=== PATIENT | male | born 1950 | race Caucasian/White ===

== ENCOUNTER 2020-10-26 01:06 | Observation (INO) | payer BC, OTHER ==
[2020-10-26 02:06] LABS: Absolute Lymphocytes (CBC) 2.4 K/uL (0.7-4.9); Basophils % 1.3 % (0-1.3); Hematocrit 42.4 % (39.6-49.0); Lymphocytes % 32.5 % (15.3-44.8); MPV 8.6 fL (7.6-11.3); RBC Red Blood Cell Count 4.98 M/uL (4.33-5.43)
[2020-10-26 02:07] LABS: Protime INR 1.03
[2020-10-26 02:17] LABS: Potassium 3.9 mmol/L (3.5-5.1)
[2020-10-26 03:03] LABS: SARS-COV-2 RT PCR NEGATIVE (NEGATIVE)
--- NOTE | 2020-10-26 03:55 | EDPHYS ---
Physician Documentation [facility] Name: Weston He Age: 70 yrs Sex: Male : 1950 Arrival Date: 10/26/2020 Time: 01:08 Bed 16 Private MD: ED Physician Brayden Drew HPI: 10/26 01:30 This 70 yrs old Male presents to ER via Ambulatory with complaints of Slurred ps1 Speech. 01:30 Patient presenting with stroke like symptoms. Onset 20 hours ago. Went to chiropractor ps1 and got adjusted and woke up with back pain. He started dragging his right leg and noticed that his speech was off. Thought it was related to his back. Did not get better. Now has right facial droop, right upper and lower extremity weakness. . Historical: - Allergies: :30 No Known Allergies; em - Home Meds: :30 Flomax 0.4 mg Oral cp24 1 cap once daily [Active]; lisinopril 20 mg Oral tab [Active]; em - PMHx: 01:30 Hypertension; em - PSHx: :30 None; em - Immunization history:: Adult Immunizations up to date. - Social history:: Smoking status: Patient denies any tobacco usage or history of. ROS: 01:30 Constitutional: Negative for fever, chills, and weight loss, Eyes: Negative for injury, ps1 pain, redness, and discharge, Cardiovascular: Negative for chest pain, palpitations, and edema, Respiratory: Negative for shortness of breath, cough, wheezing, and pleuritic chest pain, Abdomen/GI: Negative for abdominal pain, nausea, vomiting, diarrhea, and constipation, MS/Extremity: Negative for injury and deformity, Skin: Negative for injury, rash, and discoloration. 01:30 Back: Positive for pain with movement. 01:30 Neuro: Positive for weakness, of the right cheek, right arm, right leg. Exam: 01:30 Constitutional: This is a well developed, well nourished patient who is awake, alert, ps1 and in no acute distress. Head/Face: Normocephalic, atraumatic. Eyes: Pupils equal round and reactive to light, extra-ocular motions intact. Lids and lashes normal. Conjunctiva and sclera are non-icteric and not injected. Cardiovascular: Regular rate and rhythm. No gallops, murmurs, or rubs. Normal PMI, no JVD. No pulse deficits. Respiratory: Lungs have equal breath sounds bilaterally, clear to auscultation and percussion. No rales, rhonchi or wheezes noted. No increased work of breathing, no retractions or nasal flaring. Abdomen/GI: Soft, non-tender, with normal bowel sounds. No distension or tympany. No guarding or rebound. No evidence of tenderness throughout. Skin: Warm, dry with normal turgor. Normal color with no rashes, no lesions, and no evidence of cellulitis. MS/ Extremity: Pulses equal, no cyanosis. Neurovascular intact. Full, normal range of motion. 01:30 Neuro: Orientation: is normal, Mentation: is normal, Memory: is normal, Cranial nerves: facial droop noted on right, Motor: Hypotonic in right arm and right leg. dysarthria. Vital Signs: 01:24 BP 155 / 85; Pulse 49; Resp 18; Temp 98.2(O); Pulse Ox 99% on R/A; Weight 88 kg; Height em 5 ft. 11 in. (180.34 cm); Pain 0/10; 02:34 BP 145 / 84; Pulse 52; Resp 18; Pulse Ox 95% ; wh 03:45 BP 163 / 89; Pulse 50; Resp 18; Pulse Ox 98% on R/A; 05:00 BP 145 / 82; Pulse 52; Resp 18; Pulse Ox 96% on R/A; 01:24 Body Mass Index 27.06 (88.00 kg, 180.34 cm) NIH Stroke Scale Scores: 01:20 NIHSS Score: 4 01:30 NIHSS Score: 4 [facility] 02:07 NIHSS Score: 4 MDM: 01:29 Patient medically screened. ps1 10/26 01:28 Order name: Basic Metabolic Panel ps1 10/26 01:28 Order name: CBC with Diff ps1 10/26 01:28 Order name: Protime (+inr) ps1 10/26 01:28 Order name: Ptt, Activated ps1 10/26 01:28 Order name: Lipid Profile ps1 10/26 01:29 Order name: Basic Metabolic Panel; Complete Time: 02:28 EDMS 10/26 01:29 Order name: CBC with Automated Diff; Complete Time: 02:28 EDMS 10/26 01:29 Order name: Protime (+INR); Complete Time: 02:28 EDMS 10/26 01:29 Order name: PTT, Activated Partial Thromb; Complete Time: 02:28 EDMS 10/26 01:29 Order name: Lipid Profile; Complete Time: 02:28 EDMS 10/26 01:34 Order name: Glucose, Ancillary Testing; Complete Time: 01:38 EDMS 10/26 01:39 Order name: COVID-19 ps1 10/26 01:39 Order name: Flu ps1 10/26 02:37 Order name: CREATININE WHOLE BLOOD; Complete Time: 02:41 EDMS 10/26 03:03 Order name: COVID-19/FLU A+B; Complete Time: 03:05 EDMS 10/26 04:49 Order name: Thyroid Stimulating Hormone EDMS 10/26 04:49 Order name: UR CREAT EDMS 10/26 04:49 Order name: UR SODIUM EDMS 10/26 04:49 Order name: CBC with Automated Diff EDMS 10/26 04:49 Order name: Comprehensive Metabolic Panel EDMS 10/26 04:49 Order name: Comprehensive Metabolic Panel EDMS 10/26 04:49 Order name: Lipid Profile EDMS 10/26 04:49 Order name: Lipid Profile EDMS 10/26 04:49 Order name: Urinalysis W/Microscopic EDMS 10/26 04:49 Order name: Homocysteine EDMS 10/26 04:49 Order name: CBC with Automated Diff EDMS 10/26 01:28 Order name: CT Stroke Brain w/o Contrast ps1 10/26 01:28 Order name: Stroke CXR 1 View ps1 10/26 01:28 Order name: EKG; Complete Time: 01:30 ps1 10/26 01:28 Order name: Accucheck; Complete Time: 01:52 ps1 10/26 01:28 Order name: Cardiac monitoring; Complete Time: 01:52 ps1 10/26 01:28 Order name: EKG - Nurse/Tech; Complete Time: 01:52 ps1 10/26 01:28 Order name: IV Saline Lock; Complete Time: 01:52 ps1 10/26 01:28 Order name: Labs collected and sent; Complete Time: 01:52 ps1 10/26 01:28 Order name: NPO; Complete Time: 01:52 ps1 10/26 01:28 Order name: O2 Per Protocol; Complete Time: 01:52 ps1 10/26 01:28 Order name: O2 Sat Monitoring; Complete Time: 01:52 ps1 10/26 01:28 Order name: Head Angio CT [facility] 10/26 01:28 Order name: Neck Angio CT [facility] 10/26 04:49 Order name: CONS Pharmacy Consult [facility] 10/26 04:49 Order name: CONS Physician Consult [facility] 10/26 04:49 Order name: CONS Physician Consult [facility] 10/26 04:49 Order name: Physical Therapy Consult [facility] 10/26 04:49 Order name: Full Liquid EDMS 10/26 04:49 Order name: NPO EDMS 10/26 04:49 Order name: Occupational Therapy Consult [facility] 10/26 04:49 Order name: Renal Ultrasound-Complete [facility] 10/26 05:26 Order name: Liver (Hepatic) Function [facility] 10/26 05:53 Order name: Labs - recollect needed: Red top on ICE plz; Complete Time: 05:57 sg 10/26 07:21 Order name: Brain Wo Cont EDMS Administered Medications: No medications were administered Point of Care Testing: Blood Glucose: :30 Blood Glucose: 104 mg/dL; em Ranges: Critical Glucose Levels:Adult <50 mg/dl or >400 mg/dl <40 mg/dl or >180 mg/dl Disposition: 10/26/20 03:55 Hospitalization ordered by Johana Burton for Inpatient Admission. Preliminary diagnosis is Stroke. - Bed requested for Telemetry/MedSurg (Inpatient). - Status is Inpatient Admission. ss - Condition is Stable. - Problem is new. - Symptoms are unchanged. NIH Stroke Scale - NIH Stroke Score Date: 10/26/2020 Time: :20 Total Score = 4 1a. Level of Consciousness (LOC) - 0(Alert) 1b. Level of Consciousness (LOC) (Year \T\ Age) - 0(Both) 1c. LOC Commands (Open \T\ Closes Eyes/Registered Nurse Step Down) - 0(Both) 2. Best Gaze (Lateral Gaze Paresis) - 0(Normal) 3. Visual Field Loss - 0(No visual loss) 4. Facial Palsy - 1(Minor Paralysis) 5a. Left Arm: Motor (10-second hold) - 0(No drift) 5b. Right Arm: Motor (10-second hold) - 1(Drift) 6a. Left Leg: Motor (5-second hold - always test supine) - 0(No drift) 6b. Right Leg: Motor (5-second hold - always test supine) - 1(Drift) 7. Limb Ataxia (finger/nose \T\ heel/ruiz - test with eyes open) - 0(Absent) 8. Sensory Loss (pinprick arms/legs/face) - 0(Normal) 9. Best Language: Aphasia (description/naming/reading) - 0(No aphasia) 10. Dysarthria (speech clarity - read or repeat words) - 1(Mild to Moderate) 11. Extinction and Inattention (visual/tactile/auditory/spatial/personal) - 0(No abnormality) Initials: NIH Stroke Scale - NIH Stroke Score Date: 10/26/2020 Time: 01:30 Total Score = 4 1a. Level of Consciousness (LOC) - 0(Alert) 1b. Level of Consciousness (LOC) (Year \T\ Age) - 0(Both) 1c. LOC Commands (Open \T\ Closes Eyes/Registered Nurse Step Down) - 0(Both) 2. Best Gaze (Lateral Gaze Paresis) - 0(Normal) 3. Visual Field Loss - 0(No visual loss) 4. Facial Palsy - 1(Minor Paralysis) 5a. Left Arm: Motor (10-second hold) - 0(No drift) 5b. Right Arm: Motor (10-second hold) - 1(Drift) 6a. Left Leg: Motor (5-second hold - always test supine) - 0(No drift) 6b. Right Leg: Motor (5-second hold - always test supine) - 1(Drift) 7. Limb Ataxia (finger/nose \T\ heel/ruiz - test with eyes open) - 0(Absent) 8. Sensory Loss (pinprick arms/legs/face) - 0(Normal) 9. Best Language: Aphasia (description/naming/reading) - 0(No aphasia) 10. Dysarthria (speech clarity - read or repeat words) - 1(Mild to Moderate) 11. Extinction and Inattention (visual/tactile/auditory/spatial/personal) - 0(No abnormality) Initials: [facility] NIH Stroke Scale - NIH Stroke Score Date: 10/26/2020 Time: 02:07 Total Score = 4 1a. Level of Consciousness (LOC) - 0(Alert) 1b. Level of Consciousness (LOC) (Year \T\ Age) - 0(Both) 1c. LOC Commands (Open \T\ Closes Eyes/Registered Nurse Step Down) - 0(Both) 2. Best Gaze (Lateral Gaze Paresis) - 0(Normal) 3. Visual Field Loss - 0(No visual loss) 4. Facial Palsy - 1(Minor Paralysis) 5a. Left Arm: Motor (10-second hold) - 0(No drift) 5b. Right Arm: Motor (10-second hold) - 1(Drift) 6a. Left Leg: Motor (5-second hold - always test supine) - 0(No drift) 6b. Right Leg: Motor (5-second hold - always test supine) - 1(Drift) 7. Limb Ataxia (finger/nose \T\ heel/ruiz - test with eyes open) - 0(Absent) 8. Sensory Loss (pinprick arms/legs/face) - 0(Normal) 9. Best Language: Aphasia (description/naming/reading) - 0(No aphasia) 10. Dysarthria (speech clarity - read or repeat words) - 1(Mild to Moderate) 11. Extinction and Inattention (visual/tactile/auditory/spatial/personal) - 0(No abnormality) Initials: wh Signatures: Dispatcher [employer] EDMS Kamilla Mcguire Steven, RN RN sg Munoz, Edgar, Afshan Curry RN, RN RN Brayden Drew MD MD ps1 Corrections: (The following items were deleted from the chart) 01:30 01:29 HEMOGLOBIN A1C+CHEM A1C.LAB.BRZ ordered. EDMS EDMS 01:59 01:40 Influenza Screen (A ordered. EDMS EDMS 02:00 01:40 CORONAVIRUS ordered. EDMS EDMS 05:25 04:49 Liver (Hepatic) Function ordered. EDMS EDMS 07:21 04:52 Brain With Cont ordered. EDWV EDMS 10:07 03:55 Hospitalization Ordered by Johana Burton MD for Inpatient Admission. ss Preliminary diagnosis is Stroke. Bed requested for Telemetry/MedSurg (Inpatient). Status is Inpatient Admission. Condition is Stable. Problem is new. Symptoms are unchanged. ps1 11:58 10:07 10/26/2020 03:55 Hospitalization Ordered by Johana Burton MD for bd Inpatient Admission. Preliminary diagnosis is Stroke. [facility] Status is Inpatient Admission. Condition is Stable. Problem is new. Symptoms are unchanged. ss 12:29 11:58 10/26/2020 03:55 Hospitalization Ordered by Johana Burton MD for ss Inpatient Admission. Preliminary diagnosis is Stroke. Bed requested for Telemetry/MedSurg (Inpatient). Status is Inpatient Admission. Condition is Stable. Problem is new. Symptoms are unchanged. bd
--- NOTE | 2020-10-26 03:55 | ER ---
Nurse's Notes [facility] Name: Weston He Age: 70 yrs Sex: Male : 1950 Arrival Date: 10/26/2020 Time: 01:08 Bed 16 Private MD: Diagnosis: Stroke Presentation: 10/26 01:24 Chief complaint: Patient states: pt reports slurred speech and right sided weakness em since 3 AM Sunday, reports he feels like his right leg is dragging, BGL 104 at triage, Dr. Drew at bedside, code stroke activated. Coronavirus screen: Client denies travel out of the [place] in the last 14 days. Ebola Screen: Patient negative for fever greater than or equal to 101.5 degrees Fahrenheit, and additional compatible Ebola Virus Disease symptoms Patient denies exposure to infectious person. Patient denies travel to an Ebola-affected area in the 21 days before illness onset. No symptoms or risks identified at this time. An acute neurological deficit is present. The charge nurse has been notified. The patient has been moved to a treatment area. Pre-hospital glucose is not applicable to this patient. Initial Sepsis Screen: Does the patient meet any 2 criteria? No. Patient's initial sepsis screen is negative. Does the patient have a suspected source of infection? No. Patient's initial sepsis screen is negative. Risk Assessment: Do you want to hurt yourself or someone else? Patient reports no desire to harm self or others. Onset of symptoms was October 25, 2020 at 03:00. 01:24 Method Of Arrival: Ambulatory em 01:24 Acuity: FRANKI 2 em Triage Assessment: 01:30 The onset of the patients symptoms was October 25, 2020 at 03:00. em 02:09 Neuro: Reports slurred speech. wh Stroke Activation: Physician: Stroke Attending; Name: ; Notified At: ; Arrived At: Physician: Chief Stroke Resident; Name: ; Notified At: ; Arrived At: Physician: Stroke Resident; Name: ; Notified At: ; Arrived At: Physician: ED Attending; Name: ; Notified At: 01:26; Arrived At: Physician: ED Resident; Name: ; Notified At: ; Arrived At: Historical: - Allergies: :30 No Known Allergies; em - Home Meds: 01:30 Flomax 0.4 mg Oral cp24 1 cap once daily [Active]; lisinopril 20 mg Oral tab [Active]; em - PMHx: 01:30 Hypertension; em - PSHx: 01:30 None; em - Immunization history:: Adult Immunizations up to date. - Social history:: Smoking status: Patient denies any tobacco usage or history of. Screenin:20 VAN Screening: Arm Drift: Minor drift. Visual Disturbance: No visual disturbance noted. wh Aphasia: No aphasia noted. Neglect: No neglect noted. 02:09 Abuse screen: Denies threats or abuse. Denies injuries from another. Nutritional wh screening: No deficits noted. Tuberculosis screening: No symptoms or risk factors identified. Fall Risk None identified. Assessment: 01:29 Reassessment: wheeled to CT by TANISHA Becerril at this time. em 01:35 General: Appears in no apparent distress. Behavior is calm, cooperative, appropriate wh for age. Pain: Denies pain. 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 Gait is steady, Speech is slurred, Facial droop on right. Cardiovascular: Heart tones S1 S2. Respiratory: Airway is patent Respiratory effort is even, unlabored, Respiratory pattern is regular, symmetrical, Breath sounds are clear bilaterally. GI: Abdomen is flat, non-distended. : No signs and/or symptoms were reported regarding the genitourinary system. EENT: No signs and/or symptoms were reported regarding the EENT system. Derm: Skin is intact, is healthy with good turgor, Skin is pink, warm \T\ dry. normal. Musculoskeletal: Circulation, motion, and sensation intact. 02:07 VAN Scoring: Arm Drift: Minor drift Visual Disturbance: No visual disturbance noted. wh Aphasia: No aphasia noted. Neglect: No neglect noted. Patient has been NPO before screening. The patient is alert, and able to follow commands. The patient exhibits slurred or garbled speech. The patient is not exhibiting difficulty speaking. The patient is exhibiting difficulty understanding words. The patient is able to swallow own secretions with no drooling or need for suction. Patient tolerated one teaspoon of water. No drooling, immediate coughing, gurgling, or clearing of the throat was noted. The patient tolerated 90mL of water. No drooling, immediate coughing, gurgling, or clearing of the throat was noted. The patient passed the bedside swallow screening. Oral medications may be given as ordered. Contact Physician for further diet orders. Provider notified of bedside swallow screening results: Brayden Drew MD. 02:08 T-PA (Activase) Screening: Contraindications: Other: More than 20 hours since onset. 02:34 Reassessment: Patient appears in no apparent distress at this time. No changes from previously documented assessment. Patient and/or family updated on plan of care and expected duration. Pain level reassessed. Patient is alert, oriented x 3, equal unlabored respirations, skin warm/dry/pink. 04:00 Reassessment: Patient appears in no apparent distress at this time. Patient and/or family updated on plan of care and expected duration. Pain level reassessed. Patient is alert, oriented x 3, equal unlabored respirations, skin warm/dry/pink. MD at bedside explaining POC need for admit. 05:06 Reassessment: Patient appears in no apparent distress at this time. Patient and/or family updated on plan of care and expected duration. Pain level reassessed. Patient is alert, oriented x 3, equal unlabored respirations, skin warm/dry/pink. 07:10 Reassessment: Pt taken to MRI via wheelchair. ph Vital Signs: 01:24 BP 155 / 85; Pulse 49; Resp 18; Temp 98.2(O); Pulse Ox 99% on R/A; Weight 88 kg; Height em 5 ft. 11 in. (180.34 cm); Pain 0/10; 02:34 BP 145 / 84; Pulse 52; Resp 18; Pulse Ox 95% ; 03:45 BP 163 / 89; Pulse 50; Resp 18; Pulse Ox 98% on R/A; 05:00 BP 145 / 82; Pulse 52; Resp 18; Pulse Ox 96% on R/A; 01:24 Body Mass Index 27.06 (88.00 kg, 180.34 cm) em NIH Stroke Scale Scores: 01:20 NIHSS Score: 4 wh 01:30 NIHSS Score: 4 ps1 02:07 NIHSS Score: 4 ED Course: 01:08 Patient arrived in ED. cl3 01:20 Brayden Drew MD is Attending Physician. ps1 01:26 Jerrica Rosario, RN is Primary Nurse. wh 01:29 Triage completed. em 01:30 Arm band placed on. em 01:42 CT Stroke Brain w/o Contrast In Process Unspecified. EDMS 01:48 Initial lab(s) drawn, by me, sent to lab. Inserted saline lock: 20 gauge in right em forearm, using aseptic technique. Blood collected. 01:50 Stroke CXR 1 View In Process Unspecified. EDMS 02:09 Patient has correct armband on for positive identification. Placed in gown. Bed in low wh position. Call light in reach. Side rails up X 1. monitor car operator on. Pulse ox on. NIBP on. 02:[address] In Process Unspecified. EDMS 02:[address] In Process Unspecified. EDMS 03:54 Johana Burton MD is Hospitalizing Provider. ps1 07:22 Brain Wo Cont In Process Unspecified. EDMS 08:17 Renal Ultrasound-Complete In Process Unspecified. EDMS Administered Medications: No medications were administered Point of Care Testing: Blood Glucose: 01:30 Blood Glucose: 104 mg/dL; em Ranges: Outcome: 03:55 Decision to Hospitalize by Provider. ps1 12:29 Patient left the ED. NIH Stroke Scale - NIH Stroke Score Date: 10/26/2020 Time: 01:20 Total Score = 4 1a. Level of Consciousness (LOC) - 0(Alert) 1b. Level of Consciousness (LOC) (Year \T\ Age) - 0(Both) 1c. LOC Commands (Open \T\ Closes Eyes/President + Publisher) - 0(Both) 2. Best Gaze (Lateral Gaze Paresis) - 0(Normal) 3. Visual Field Loss - 0(No visual loss) 4. Facial Palsy - 1(Minor Paralysis) 5a. Left Arm: Motor (10-second hold) - 0(No drift) 5b. Right Arm: Motor (10-second hold) - 1(Drift) 6a. Left Leg: Motor (5-second hold - always test supine) - 0(No drift) 6b. Right Leg: Motor (5-second hold - always test supine) - 1(Drift) 7. Limb Ataxia (finger/nose \T\ heel/ruiz - test with eyes open) - 0(Absent) 8. Sensory Loss (pinprick arms/legs/face) - 0(Normal) 9. Best Language: Aphasia (description/naming/reading) - 0(No aphasia) 10. Dysarthria (speech clarity - read or repeat words) - 1(Mild to Moderate) 11. Extinction and Inattention (visual/tactile/auditory/spatial/personal) - 0(No abnormality) Initials: NIH Stroke Scale - NIH Stroke Score Date: 10/26/2020 Time: 01:30 Total Score = 4 1a. Level of Consciousness (LOC) - 0(Alert) 1b. Level of Consciousness (LOC) (Year \T\ Age) - 0(Both) 1c. LOC Commands (Open \T\ Closes Eyes/President + Publisher) - 0(Both) 2. Best Gaze (Lateral Gaze Paresis) - 0(Normal) 3. Visual Field Loss - 0(No visual loss) 4. Facial Palsy - 1(Minor Paralysis) 5a. Left Arm: Motor (10-second hold) - 0(No drift) 5b. Right Arm: Motor (10-second hold) - 1(Drift) 6a. Left Leg: Motor (5-second hold - always test supine) - 0(No drift) 6b. Right Leg: Motor (5-second hold - always test supine) - 1(Drift) 7. Limb Ataxia (finger/nose \T\ heel/ruiz - test with eyes open) - 0(Absent) 8. Sensory Loss (pinprick arms/legs/face) - 0(Normal) 9. Best Language: Aphasia (description/naming/reading) - 0(No aphasia) 10. Dysarthria (speech clarity - read or repeat words) - 1(Mild to Moderate) 11. Extinction and Inattention (visual/tactile/auditory/spatial/personal) - 0(No abnormality) Initials: [facility], [place] NIH Stroke Scale - NIH Stroke Score Date: 10/26/2020 Time: 02:07 Total Score = 4 1a. Level of Consciousness (LOC) - 0(Alert) 1b. Level of Consciousness (LOC) (Year \T\ Age) - 0(Both) 1c. LOC Commands (Open \T\ Closes Eyes/President + Publisher) - 0(Both) 2. Best Gaze (Lateral Gaze Paresis) - 0(Normal) 3. Visual Field Loss - 0(No visual loss) 4. Facial Palsy - 1(Minor Paralysis) 5a. Left Arm: Motor (10-second hold) - 0(No drift) 5b. Right Arm: Motor (10-second hold) - 1(Drift) 6a. Left Leg: Motor (5-second hold - always test supine) - 0(No drift) 6b. Right Leg: Motor (5-second hold - always test supine) - 1(Drift) 7. Limb Ataxia (finger/nose \T\ heel/ruiz - test with eyes open) - 0(Absent) 8. Sensory Loss (pinprick arms/legs/face) - 0(Normal) 9. Best Language: Aphasia (description/naming/reading) - 0(No aphasia) 10. Dysarthria (speech clarity - read or repeat words) - 1(Mild to Moderate) 11. Extinction and Inattention (visual/tactile/auditory/spatial/personal) - 0(No abnormality) Initials: Signatures: Dispatcher [employer] Fortino Avila RN RN Afshan Storm RN RN Lucy Abreu RN RN Jerrica Rosario RN RN wh Singer, Phillip, MD MD ps1 Yuan Hannon cl3 Corrections: (The following items were deleted from the chart) 02:33 02:08 T-PA (Activase) Screening: Contraindications: Other: More than 20 hours wh since onser 04:06 01:24 Chief complaint: Patient states: pt reports slurred speech and right em sided weakness since 3 AM Sunday, reports he feels like his right, BGL 104 at triage, Dr. Drew at bedside, code stroke activated em
--- NOTE | 2020-10-26 04:34 | P.HP ---
Certification for Inpatient With expected LOS: >2 Midnights Patient will require the following post-hospital care: Rehabilitation Practitioner: I am a practitioner with admitting privileges, knowledge of patient current condition, hospital course, and medical plan of care. Services: Services provided to patient in accordance with Admission requirements found in Title 42 Section 412.3 of the Code of Federal Regulations Patient History Date of Service: 10/26/20 Reason for admission: right sided weakness History of Present Illness: 7 2 1-year-old male with past medical history of HTN, BPH, develop weakness of the right upper and lower extremity as well as difficulty with speaking or poor waking of 24 hr sickle. Patient states he has had a chiropractic back adjustment DD area. 0 4 waking up he has discovered onset of gait instability with slight weakness of the right upper and lower extremity. He did not notice change in his voice but was told later by his friends. Patient has fed the symptoms way related to his lower back spasm. But symptoms continued to persist throughout the day hernia presented to the ED later at night. On presentation patient was outside tPA window. He had a head CT with angio done that shows mild atrophic but no significant stenosis. Patient was noted with mild elevated creatinine of 1.89. EKG was remarkable for sinus bradycardia with first-degree AV block but no a rate mass. Patient initial NIH stroke scale score was 4 which remained stable 2 hr since presentation. He has been admitted for possible acute left CVA He denies prior history of similar symptoms. He denies family history of CVA. He denies any cardiac history. He states he has usual blood pressure range in the 140s to 150 systolic. He states adherent with daily lisinopril and Flomax. Home medications list reviewed: Yes - Past Medical/Surgical History Has patient received pneumonia vaccine in the past: No -: HTN -: BPH Past Surgical History: Reviewed- Non-Contributory - Family History Family History: Reviewed- Non-Contributory - Social History Smoking Status: Never smoker Place of Residence: Home Review of Systems Unremarkable General: Unremarkable Eyes: Unremarkable ENT: Unremarkable Respiratory: Unremarkable Cardiovascular: Unremarkable Gastrointestinal: Unremarkable Musculoskeletal: Unremarkable Integumentary: Unremarkable Neurological: Weakness, Incoordination, Change in Speech Physical Examination - Physical Exam General: Alert, Cooperative HEENT: Atraumatic, Normocephalic, PERRLA, Mucous membr. moist/pink Neck: Supple, 2+ carotid pulse no bruit, JVD not distended, No Thyromegaly Respiratory: Clear to auscultation bilaterally, Normal air movement Cardiovascular: No edema, Normal pulses, Regular rate/rhythm, Normal S1 S2, No murmurs Capillary refill: <2 Seconds Gastrointestinal: Normal bowel sounds, Soft and benign, Non-distended, W/out hepatosplenomegaly, No ascites, No tenderness Musculoskeletal: No clubbing, No swelling Integumentary: No rashes, No breakdown Neurological: Sensation intact, Cranial nerves 3-12 intact, Other (Power 4-5/5 globally , Mild pronator drift of RUE/RLE), Abnormal gait External genitalia: No edema, No lesions - Studies Laboratory Data (last 24 hrs) 10/26/20 01:48: PT 12.1, INR 1.03, APTT 26.5 10/26/20 01:48: WBC 7.40, Hgb 14.8, Hct 42.4, Plt Count 192 10/26/20 01:48: Sodium 140, Potassium 3.9, BUN 21 H, Creatinine 1.89 H, Glucose 90, Triglycerides 141, Cholesterol 187, HDL Cholesterol 35 L, Cholesterol/HDL Ratio 5.34 Imagings Data: EKG SHOWS SINUS BRADYCARDIA AT 54 BEATS PER MIN, FIRST-DEGREE AV BLOCK. HEAD CT SHOWS MILD CEREBRAL ATROPHIC, NO ACUTE INTRACRANIAL CHANGES CT ANGIO OF HEAD AND NECK-MILD CAROTID BULB ATHEROSCLEROSIS, NO OTHER SIGNIFICANT STENOSIS OF VERTEBRAL/BASILAR VESSELS Assessment and Plan - Problems (Diagnosis) (1) CVA (cerebral vascular accident) Current Visit: Yes Status: Acute (2) HTN (hypertension) Current Visit: Yes Status: Acute (3) ARF (acute renal failure) Current Visit: Yes Status: Acute (4) BPH w/o urinary obs/LUTS Current Visit: Yes Status: Acute - Advance Directives Does patient have a Living Will: No Does patient have a Durable POA for Healthcare: No - Code Status/Comfort Care Code Status Assessed: Yes Physician Review: Patient Assessed, Agree with Above Assessment and Plan Physician Review Additional Text: ACUTE LEFT CVA-with mild right upper and lower extremity weakness will obtain MRI of the brain to rule out ischemic lesions Clinical features consistent with acute CVA We start patient on empirical aspirin as well as Plavix Will consult neurology Will consult PT and OT Patient might need SNF Will obtain lipid profile, homocystine level less than Allow for permissive hypertension for the next 24 hr We start empirical Lipitor 40 mg daily Will obtain swallow evaluation Hypertension-on lisinopril and Flomax, mild systolic elevation to 160s now. Will hold blood pressure medications now but do IV hydralazine p.r.n. systolic double 180 BPH-may need restart Flomax Acute kidney injury-may be due to lisinopril use Will obtain renal sonogram to rule out type hydronephrosis High risk of superimposed contrast nephropathy considered Do gentle IV fluid with D5 NS DVT prophylaxis-do subcutaneous Lovenox for now Advanced directive-patient is full code Time Spent Managing Pts Care (In Minutes): 65
[2020-10-26] MEDS ORDERED: ONDANSETRON 4 MG/2 ML VIAL IV PRN (04:40)
[2020-10-26] MEDS ORDERED: MORPHINE 2 MG/ML SYR IV PRN (04:40)
[2020-10-26] MEDS ORDERED: HYDRALAZINE HCL 20 MG/ML VIAL IV PRN (04:48)
[2020-10-26] MEDS ORDERED: ALPRAZOLAM 1 MG TABLET PO ONE (04:52)
[2020-10-26] MEDS: D5 0.9 NS 1,000 ML IV SCH ×2 (05:00→14:18)
[2020-10-26 05:55] LABS: Albumin 3.4 g/dL (3.4-5.0); Bilirubin Direct 0.1 mg/dL (0-0.2); Bilirubin Total 0.5 mg/dL (0.2-1.0); Protein, Total 6.5 g/dL (6.4-8.2); Thyroid Stimulating Hormone 0.694 uIU/mL (0.360-3.740)
--- NOTE | 2020-10-26 06:59 | RAD REPORT ---
EXAM DESCRIPTION: RAD - Chest Single View - 10/26/2020 1:50 am CLINICAL HISTORY: stroke, Stroke protocol chest film COMPARISON: None TECHNIQUE: AP portable chest image was obtained 10/26/2020 1:50 am . FINDINGS: No focal lung parenchymal process. No failure or volume overload. Interstitial pattern is believed to be a mild chronic lung disease. Heart and vasculature are normal. No measurable pleural e ffusion and no pneumothorax. No acute bony abnormality seen. No acute aortic findings suspected. IMPRESSION: No acute cardiopulmonary process.
--- NOTE | 2020-10-26 08:02 | RAD REPORT ---
EXAM DESCRIPTION: MRI - Brain Wo Cont - 10/26/2020 7:43 am CLINICAL HISTORY: acute CVA COMPARISON: Head angio dated 10/26/2020; Neck Angio dated 10/26/2020; Ct Stroke Brain Wo Cont dated TECHNIQUE: Sagittal T1-weighted images were obtained along with axial PD, heavily T2-weighted and T2 -FLAIR images. Axial DWI and ADC mapping sequences were also obtained along with coronal heavily T2-w eighted images. FINDINGS: No intracranial hemorrhage, mass or acute infarction. There is no edema or shift of midlin e structures. No extra-axial fluid collections. Lopez-matter/white matter junction is preserved. Signa l voids are seen as a normal finding in the major intracranial vessels. Volume loss is minimal. Ventr icles are in proportion to any volume loss. Only trace amounts of T2 signal abnormality seen in the c erebral white matter. No globe or orbital content acute finding. Mastoid air cells and paranasal sinuses are clear of acute disease. IMPRESSION: No acute infarction changes present. No mass, hemorrhage or acute intracranial finding. Patient has very little atrophy or chronic ischemic change present. Ventricles are normal.
--- NOTE | 2020-10-26 08:45 | RAD REPORT ---
EXAM DESCRIPTION: US - Renal Ultrasound-Complete - 10/26/2020 8:17 am CLINICAL HISTORY: arf, R/O hydro COMPARISON: No comparisons FINDINGS: The right kidney measures 10.0 x 3.9 x 4.4 cm. The left kidney measures 10.5 x 5.6 x 5.0 cm. Mild cortical thinning seen in each kidney. Echogenicity of the cortical tissue within normal huggins its. No hydronephrosis or suspicious renal mass. Urinary bladder is only partially filled which limits assessment. Lobulated contour is probably from incomplete distention. Bladder can be further evaluated as clinical findings warrant. IMPRESSION: Slight cortical thinning with no hydronephrosis or other significant renal finding. Urinary bladder is grossly normal but insufficiently filled for assessment. Dedicated bladder ultraso und can be obtained as warranted.
[2020-10-26] MEDS ORDERED: CLOPIDOGREL 75 MG TABLET PO ONE (10:15)
[2020-10-26] MEDS ORDERED: ASPIRIN EC 81 MG TAB PO ONE ×3 (10:15→12:10)
[2020-10-26] MEDS: ENOXAPARIN 40 MG/0.4 ML SQ SCH (10:15)
--- NOTE | 2020-10-26 11:52 | RAD REPORT ---
EXAM DESCRIPTION: CT - Neck Angio - 10/26/2020 6:35 am CLINICAL HISTORY: Stroke COMPARISON: CT head without contrast October 26, 2020 TECHNIQUE: Multiple helical axial tomographic images were obtained of the head and neck following ad ministration of intravenous contrast per angiographic protocol. MIP reformatted images were obtained. This exam was performed according to our departmental dose-optimization program, which includes auto mated exposure control, adjustment of the mA and/or kV according to patient size and/or use of iterat deshawn reconstruction technique. FINDINGS: Head: Mild intracranial carotid atherosclerosis is noted. Intracranial segments of the bilateral internal c arotid arteries appear patent without significant stenosis or occlusion. Bilateral anterior and middl e cerebral arteries appear patent without significant stenosis or occlusion. Intracranial segments of the bilateral vertebral arteries, basilar artery, and posterior cerebral arteries appear patent with out significant stenosis or occlusion. No evidence of intracranial aneurysm. There is no acute intracranial hemorrhage. No mass. No midline shift. No ventriculomegaly. Lopez-white matter differentiation is maintained. Trace paranasal sinus mucosal thickening is present. Mastoid air cells and middle ear spaces are anh r. Orbits and orbital contents are unremarkable. Osseous structures are unremarkable. Surrounding soft tissues are unremarkable. Neck: Minimal atherosclerosis involving the carotid bulbs is noted. Carotid and vertebral arterial vasculat ure of the neck appears patent without stenosis stenosis or occlusion. Nonspecific coarse calcifications in the right thyroid lobe noted. Salivary glands appear unremarkabl e. No evidence of adenopathy. Retropharyngeal space appears normal. Epiglottis appears normal. Larynx and vocal folds appear unremarkable. Visualized lungs are clear. Degenerative changes of the cervical spine noted. IMPRESSION: No evidence of significant arterial stenosis or occlusion within the head or neck. Electronically signed by: Jose Mistry MD 10/26/2020 3:30 AM [facility] Due to temporary technical issues with the PACS/Fluency reporting system, reports are being signed by the in house radiologist without review as a courtesy to ensure prompt reporting. The interpreting r adiologist is fully responsible for the content of the report.
--- NOTE | 2020-10-26 11:54 | RAD REPORT ---
EXAM DESCRIPTION: CT - Head angio - 10/26/2020 6:34 am CLINICAL HISTORY: Stroke COMPARISON: CT head without contrast October 26, 2020 TECHNIQUE: Multiple helical axial tomographic images were obtained of the head and neck following ad ministration of intravenous contrast per angiographic protocol. MIP reformatted images were obtained. This exam was performed according to our departmental dose-optimization program, which includes auto mated exposure control, adjustment of the mA and/or kV according to patient size and/or use of iterat deshawn reconstruction technique. FINDINGS: Head: Mild intracranial carotid atherosclerosis is noted. Intracranial segments of the bilateral internal c arotid arteries appear patent without significant stenosis or occlusion. Bilateral anterior and middl e cerebral arteries appear patent without significant stenosis or occlusion. Intracranial segments of the bilateral vertebral arteries, basilar artery, and posterior cerebral arteries appear patent with out significant stenosis or occlusion. No evidence of intracranial aneurysm. There is no acute intracranial hemorrhage. No mass. No midline shift. No ventriculomegaly. Lopez-white matter differentiation is maintained. Trace paranasal sinus mucosal thickening is present. Mastoid air cells and middle ear spaces are anh r. Orbits and orbital contents are unremarkable. Osseous structures are unremarkable. Surrounding soft tissues are unremarkable. Neck: Minimal atherosclerosis involving the carotid bulbs is noted. Carotid and vertebral arterial vasculat ure of the neck appears patent without stenosis stenosis or occlusion. Nonspecific coarse calcifications in the right thyroid lobe noted. Salivary glands appear unremarkabl e. No evidence of adenopathy. Retropharyngeal space appears normal. Epiglottis appears normal. Larynx and vocal folds appear unremarkable. Visualized lungs are clear. Degenerative changes of the cervical spine noted. IMPRESSION: No evidence of significant arterial stenosis or occlusion within the head or neck. Electronically signed by: Jose Mistry MD 10/26/2020 3:30 AM [facility] Due to temporary technical issues with the PACS/Fluency reporting system, reports are being signed by the in house radiologist without review as a courtesy to ensure prompt reporting. The interpreting r adiologist is fully responsible for the content of the report.
--- NOTE | 2020-10-26 11:55 | RAD REPORT ---
EXAM DESCRIPTION: CT - Ct Stroke Brain Wo Cont - 10/26/2020 1:42 am ADDENDUM #1 CODE STROKE PROTOCOL CONFERENCE CALL: The findings were verbally discussed via telephone conference with Dr. Brayden Drew on 10/26/2020 1:58 AM DUTY ENGINEER. The results were acknowledged and understood. Electronically signed by: Rekha Varghese MD 10/26/2020 1:58 AM DUTY ENGINEER End of Addendum CT HEAD WITHOUT IV CONTRAST CLINICAL HISTORY: APHASIA TECHNIQUE: Contiguous axial CT images obtained through the brain without IV contrast. Coronal and sa gittal reformatted images were provided. This exam was performed according to our departmental dose-optimization program, which includes autom ated exposure control, adjustment of the mA and/or kV according to patient size and/or use of iterati ve reconstruction technique. COMPARISON: None available for comparison FINDINGS: Brain: There is mild cerebral atrophy. Mild bilateral periventricular and subcortical whit e matter hypodensity which is nonspecific and can be seen in the clinical setting of chronic microvas cular angiopathy. No focal mass effect. Lopez-white matter differentiation is within normal limits. No hemorrhage. Ventricles: No ventriculomegaly or midline shift. Extra-axial spaces: No extra-axial collection or hemorrhage. Paranasal sinuses and mastoid air cells: Well-aerated Vessels: There is atherosclerotic disease of the internal carotid and vertebral arteries bilaterally. Bones: Unremarkable Soft tissues: Unremarkable IMPRESSION: 1. No acute hemorrhage, focal mass or large territory infarction. 2. Other findings as above. Electronically signed by: Rekha Varghese MD 10/26/2020 1:54 AM DUTY ENGINEER Due to temporary technical issues with the PACS/Fluency reporting system, reports are being signed by the in house radiologist without review as a courtesy to ensure prompt reporting. The interpreting r adiologist is fully responsible for the content of the report.
[2020-10-26] MEDS ORDERED: CLOPIDOGREL 75 MG TABLET ONE ×2 (12:01→12:10)
[2020-10-26] MEDS ORDERED: ENOXAPARIN 40 MG/0.4 ML SQ ONE (12:10)
[2020-10-26 13:22] VITALS: BMI 26.4
[2020-10-26] MEDS: ACETAMINOPHEN 500 MG TAB PO PRN (16:29)
--- NOTE | 2020-10-26 17:39 | P.PN ---
Date of Service: 10/26/20 Patient with clumsiness in the left upper extremity. He has significant dysphagia. He passed a swallow test. He has no dysphasia. MRI of the brain: No acute infarct identified. Acute CVA: Persistent symptoms makes TIA unlikely Plan: Case discussed with Dr. Whitehead. Continue aspirin and Plavix. High doses statin. Folic acid.
--- NOTE | 2020-10-26 17:58 | CON ---
Date of Consultation: 10/26/2020 Reason For Consultation: Elevated BUN and creatinine, hypertension. History Of Present Illness: This is a 70-year-old gentleman with significant past medical history of hypertension, benign prostatic hypertrophy, CVA. The patient was admitted with stroke, found to have elevation in BUN and creatinine. For that reason, we have been consulted. The patient denied taking any nonsteroidal, no recent change in his medication. Reviewing the record for the patient, the patient do not have hospitalization before. The patient was started on hydration and renal obstructive was ruled out. Past Medical History: Includes; 1. Chronic kidney disease. 2. Benign prostatic hypertrophy. 3. Hypertension. Social History: Denied smoking. Occasional alcohol. Denied drug abuse. Family History: Positive for hypertension. Past Surgical History: Noncontributory. Review of Systems: Head and Neck: Has facial droop. GI: No nausea. No vomiting. : No polyuria. No dysuria. No hematuria. GRAIN ELEVATOR MAN: Not applicable. Respiratory: No shortness of breath. Cardiovascular: No chest pain. Endocrine: No polydipsia. Skin: No rash. Neuro: Has weakness on the left side. Musculoskeletal: Generalized fatigue. Physical Examination: Vital Signs: Blood pressure 144/78, pulse of 56, afebrile. Chest: Clear to auscultation. Heart: S1, S2. Regular. Abdomen: Soft, nontender. Extremity: No edema. Neuro: Facial droop and slurred speech. Laboratory Data: WBC 7.4, H and H 14.8/42.4. Sodium 140, potassium 3.8, bicarb 23, BUN 21, creatinine 1.8, GFR of 35. TSH 0.6. Current Medications: The patient on include aspirin, Plavix, Lovenox, atorvastatin, Zofran. Renal ultrasound; normal size kidney 07/10.5. Assessment And Plan: 1. Chronic kidney disease, stage 3 with acute kidney injury secondary to prerenal. I am going to continue current hydration. We will follow up PTH and CK, uric acid with vitamin D to evaluate the chronicity of the disease. 2. Hypertension, controlled with the presence of stroke. We need to maintain the blood pressure on the current range. We will try to tight control. After, we will consider rechallenge with TIM inhibitor/ARB. 3. Cerebrovascular accident as by primary. 4. Benign prostatic hypertrophy, stable. time spend discussing with the patient face to face , placing order , discusse with the patient and other support team assoc including hospitalist 45 min. KAUSHIK Voice ID: [id number] Report ID: [id number] CAROLINE
[2020-10-26] MEDS ORDERED: ATORVASTATIN 40 MG TAB PO SCH ×2 (21:00)
[2020-10-26 21:32] LABS: Urine Appearance CLEAR; Urine Bilirubin NEGATIVE (NEG); Urine Blood NEGATIVE (NEG); Urine Color YELLOW; Urine Glucose NEGATIVE (NEG); Urine Protein NEGATIVE (NEG); Urine Specific Gravity 1.025 (1.005-1.030)
[2020-10-26 22:51] LABS: Urine Bacteria <20 /HPF (NONE SEEN); Urine RBC <5 /HPF (NONE SEEN)
[2020-10-27] MEDS: D5 0.9 NS 1,000 ML IV SCH (01:00)
[2020-10-27 02:19] VITALS: O2SAT 98
[2020-10-27 04:45] LABS: Absolute Lymphocytes (CBC) 1.9 K/uL (0.7-4.9); Basophils % 0.8 % (0-1.3); Hematocrit 41.4 % (39.6-49.0); Lymphocytes % 29.6 % (15.3-44.8); MPV 8.6 fL (7.6-11.3); RBC Red Blood Cell Count 4.84 M/uL (4.33-5.43)
[2020-10-27 05:00] LABS: Albumin 3.2 g/dL (3.4-5.0); Bilirubin Total 0.6 mg/dL (0.2-1.0); Phosphorus 2.8 mg/dL (2.5-4.9); Potassium 3.8 mmol/L (3.5-5.1); Protein, Total 6.4 g/dL (6.4-8.2); Uric Acid 5.2 mg/dL (3.5-7.2)
--- NOTE | 2020-10-27 06:31 | EKG ---
Test Date: 2020-10-26 Test Time: 01:44:51 Sales Branch Manager: MEASUREMENT RESULTS: Intervals: Rate: 47 MO: 236 QRSD: 98 QT: 434 QTc: 384 [place]: P: 64 MO: 236 QRS: 60 T: 51 INTERPRETIVE STATEMENTS: Sinus bradycardia with 1st degree AV block Otherwise normal ECG No previous ECG available for comparison Electronically Signed On 10-27-20 06:27:21 ACCESS SPECIALIST by Dung Gillespie
[2020-10-27] MEDS ORDERED: ASPIRIN EC 81 MG TAB PO SCH (09:00)
[2020-10-27] MEDS ORDERED: CLOPIDOGREL 75 MG TABLET PO SCH (09:00)
[2020-10-27] MEDS: ENOXAPARIN 40 MG/0.4 ML SQ SCH (09:27)
[2020-10-27] MEDS: ACETAMINOPHEN 500 MG TAB PO PRN (13:07)
--- NOTE | 2020-10-27 14:03 | P.DS ---
Admission Date: 10/26/20 Discharge Date: 10/27/20 Disposition: ROUTINE DISCHARGE Discharge Condition: FAIR Reason for Admission: right sided weakness Consultations: Nephrology - Problems (1) CVA (cerebral vascular accident) Status: Acute (2) HTN (hypertension) Status: Acute (3) ARF (acute renal failure) Status: Acute (4) BPH w/o urinary obs/LUTS Status: Acute Brief History of Present Illness: 70-year-old gentleman with a history of hypertension and BPH developed weakness and clumsiness of the right upper extremity, difficulty speaking. Patient had a CT angiogram of the head and neck done in the ED which was unremarkable. Head CT was also performed which did not show any acute disease, no acute infarct. Patient reports compliance with his antihypertensives. He was admitted for further management. Hospital Course: Patient admitted to the medical floor and put on aspirin and Plavix and high- dose statin. MRI of the brain done did not show any acute infarct. He has no significant stenosis or occlusion in the arteries of the head and neck. Patient passed swallow evaluation and has no dysphasia. He tolerated feeding. His symptoms did not improve much over 24 hrs. Echocardiogram performed and the result is pending to be followed. He was seen in consultation by nephrology. His lisinopril has been held due to AZEEM. His blood pressure will be managed with oral Norvasc. He is informed to follow with nephrology-Dr. Flynn in the office within 2 weeks for TIM inhibitor challenge. Vital Signs/Physical Exam: Temp Pulse Resp BP Pulse Ox 98.4 F 52 20 170/81 H 96 10/27/20 08:00 10/27/20 08:00 10/27/20 08:00 10/27/20 08:00 10/27/20 08:00 General: Alert, In no apparent distress, Oriented x3 HEENT: Mucous membr. moist/pink Neck: Supple Respiratory: Clear to auscultation bilaterally Cardiovascular: No edema, Regular rate/rhythm, Normal S1 S2 Gastrointestinal: Soft and benign, Non-distended Musculoskeletal: No swelling, No tenderness Integumentary: No rashes Neurological: Other (Left upper extremity weakness, loss of coordination in left upper and lower extremities.) Laboratory Data at Discharge: WBC 6.30 K/uL (4.3-10.9) D 10/27/20 04:20 Hgb 14.3 g/dL (13.6-17.9) 10/27/20 04:20 Hct 41.4 % (39.6-49.0) 10/27/20 04:20 Plt Count 183 K/uL (152-406) 10/27/20 04:20 PT 12.1 SECONDS (9.5-12.5) 10/26/20 01:48 INR 1.03 10/26/20 01:48 APTT 26.5 SECONDS (24.3-36.9) 10/26/20 01:48 Sodium 142 mmol/L (136-145) 10/27/20 04:20 Potassium 3.8 mmol/L (3.5-5.1) 10/27/20 04:20 BUN 17 mg/dL (7-18) 10/27/20 04:20 Creatinine 1.64 mg/dL (0.55-1.3) H 10/27/20 04:20 Glucose 102 mg/dL (74-106) 10/27/20 04:20 Uric Acid 5.2 mg/dL (3.5-7.2) 10/27/20 04:20 Phosphorus 2.8 mg/dL (2.5-4.9) 10/27/20 04:20 Total Bilirubin 0.6 mg/dL (0.2-1.0) 10/27/20 04:20 AST 18 U/L (15-37) 10/27/20 04:20 ALT 19 U/L (12-78) 10/27/20 04:20 Alkaline Phosphatase 63 U/L (45-117) 10/27/20 04:20 Triglycerides 141 mg/dL (<150) 10/27/20 04:20 Cholesterol 169 mg/dL (<200) 10/27/20 04:20 HDL Cholesterol 32 mg/dL (40-60) L 10/27/20 04:20 Cholesterol/HDL Ratio 5.28 10/27/20 04:20 Home Medications: Tamsulosin [Flomax*] 1 cap PO DAILY 10/26/20 Amlodipine [Norvasc*] 10 mg PO DAILY #30 tab 10/27/20 Aspirin [Aspirin EC 81 MG] 162 mg PO DAILY #60 tablet. 10/27/20 Atorvastatin Calcium [Lipitor] 80 mg PO BEDTIME #30 tab 10/27/20 Clopidogrel Bisulfate [Plavix*] 75 mg PO DAILY #30 tablet 10/27/20 Folic Acid 1 mg PO DAILY #30 tablet 10/27/20 New Medications: Aspirin [Aspirin EC 81 MG] 162 mg PO DAILY #60 tablet. Folic Acid 1 mg PO DAILY #30 tablet Atorvastatin Calcium [Lipitor] 80 mg PO BEDTIME #30 tab Amlodipine [Norvasc*] 10 mg PO DAILY #30 tab Clopidogrel Bisulfate [Plavix*] 75 mg PO DAILY #30 tablet Diet: AHA Activity: Ad jennifer Followup: Da Flynn MD [ACTIVE - CAN ADMIT] - (within 2 weeks.) Johnny Whitehead MD [ASSOCIATE-ACTIVE - CAN ADMIT] - (within 4 weeks.) Vince Gentile [Primary Care Provider] - 1-2 Weeks Mingo Dinh [ACTIVE - CAN ADMIT] - (within 1 month.)
--- NOTE | 2020-10-27 14:08 | PN ---
Date of Progress Note: 10/27/2020 Subjective: The patient was admitted with acute kidney injury on chronic kidney disease. Obstructive uropathy has been ruled out. The patient also was admitted for CVA. After hydration, kidney function started being trending to his baseline. Blood pressure is still elevated. Physical Examination: Vital Signs: Blood pressure 170/81, pulse of 52, afebrile. The patient had good urine output. Chest: Clear to auscultation. Heart: S1, S2. Systolic murmur. Abdomen: Soft, nontender. Extremities: No edema. Neuro: Facial drop, left-sided weakness. Laboratory Data: Sodium 143, potassium 3.8, bicarb 24, BUN 17, creatinine 1.6, GFR of 42, uric acid 5.2, calcium 8.2. PTH of 50, hemoglobin 14.3, PC ratio is 0.5. Current Medications: The patient is on include: 1. Aspirin. 2. Plavix. 3. Lovenox. 4. Atorvastatin. 5. Hydralazine. 6. Zofran. 7. D5 normal. Assessment And Plan: 1. Acute kidney injury on chronic kidney disease secondary to hypertension, nephrosclerosis. Normal size kidney, non-proteinuric. I am going to go ahead and continue to monitor the patient. DC IV fluid. 2. Hypertension. The patient passed 48 hours of stroke with the presence of bradycardia. I am going to add calcium channel gonzalo and we will follow up the patient. The patient may be challenged later on with TIM inhibitor or ARB. 3. Cerebrovascular accident, as by primary. 4. Follow up with Urology. 5. Benign prostate hypertrophy, stable. Continue Flomax. time spend discussing with the patient face to face , placing order , discusse with the patient and other deboning team leader including hospitalist 45 min. KAUSHIK Voice ID: [id number] Report ID: [id number] CAROLINE
[2020-10-27 15:38] VITALS: BP 160/96; TEMP 98.3
[2020-10-28] MEDS ORDERED: AMLODIPINE 10 MG TAB PO SCH (09:00)
--- NOTE | 2020-10-29 09:02 | ECHO ---
HEIGHT: 5 ft 11 in WEIGHT: 189 lb 4.8 oz DATE OF STUDY: 10/28/[address]: arturo moody 2-DIMENSIONAL: YES M.MODE: YES DOPPLER: NO COLOR FLOW: NO TDS: PORTABLE: DEFINITY: BUBBLE STUDY: DIAGNOSIS: CEREBRAL VASCULAR ACCIDNET CARDIAC HISTORY: CATHERIZATION: SURGERY: PROSTHETIC VALVE: PACEMAKER: MEASUREMENTS (cm) DIASTOLIC (NORMALS) SYSTOLIC (NORMALS) IVSd 0.9 (0.6-1.2) LA Diam 3.8 (1.9-4.0) LVEF 63% LVIDd 5.1 (3.5-5.7) LVIDs 3.4 (2.0-3.5) %FS 34% LVPWd 0.9 (0.6-1.2) Ao Diam 2.9 (2.0-3.7) 2 DIMENSIONAL ASSESSMENT: RIGHT ATRIUM: LEFT ATRIUM: RIGHT VENTRICLE: LEFT VENTRICLE: TRICUSPID VALVE: MITRAL VALVE: PULMONIC VALVE: AORTIC VALVE: PERICARDIAL EFFUSION: AORTIC ROOT: LEFT VENTRICULAR WALL MOTION: DOPPLER/COLOR FLOW: COMMENTS: NORMAL LEFT VENTRICULAR EJECTION FRACTION AND SIZE. AORTIC SCLEROSIS. MITRAL ANNULAR CALCIFICATION. TECHNOLOGIST: MULU PHELAN
[2020-10-30 13:51] LABS: Vitamin D 1,25-Dihydroxy Total 29 pg/mL (18-72); Vitamin D,1,25-OH2, D2 <8 pg/mL
== END 2020-10-27 15:53 | disposition home or self-care (01) ==
LOC: ER 01:06 → SUATTDRO 01:06 → ERHOLD 10:07 → INTOOBSV 10:07 → 2ND 12:11
PROVIDERS: ADMIT Internal Medicine; ATTEND Internal Medicine
DX: I63.9 Cerebral infarction, unspecified (principal); N17.9 Acute kidney failure, unspecified; N40.0 Benign prostatic hyperplasia without lower urinary tract symptoms; I12.9 Hypertensive chronic kidney disease with stage 1 through stage 4 chronic kidney disease, or unspecified chronic kidney disease; N18.30 Chronic kidney disease, stage 3 unspecified; Z20.822 Contact with and (suspected) exposure to COVID-19
CPT/HCPCS: 0240U; 36415; 70450; 70496; 70498; 70551; 71045; 76770; 80048; 80053; 80061; 80069; 80076; 81001; 82565; 82570; 82652; 82947; 83090; 83970; 84300; 84443; 84550; 85025; 85610; 85730; 92610; 93005; 93306; 97112; 97161; 97165; 99284; G0378; J0360; J1650; J2405; J7042; Q9967